=== PATIENT | male | born 1975 | race African-American/Black ===

== ENCOUNTER 2018-11-02 19:37 | Observation (INO) | payer MEDICARE, MEDICAID ==
[2018-11-02] MEDS ORDERED: NORMAL SALINE 1000 ML 1,000 ML IV ONE ×2 (19:51→21:06)
--- NOTE | 2018-11-02 19:53 | ER Document Report ---
ED General - General Stated Complaint: POSSIBLE STROKE Time Seen by Provider: 11/02/18 19:48 - HPI Patient complains to provider of: right weakness Notes: LKWT 35 mins prior to arrival has speech difficulty and right sided weakness that are new he has had cva's previously but denies right sided weakness at baseline he is on eliquis and compliant w/ last dose today per his report Past Medical History - Social History Smoking Status: Unknown if Ever Smoked Family History: Reviewed & Not Pertinent Review of Systems - Review of Systems Constitutional: No symptoms reported EENT: No symptoms reported Cardiovascular: Chest pain Respiratory: No symptoms reported Gastrointestinal: No symptoms reported Genitourinary: No symptoms reported Male Genitourinary: No symptoms reported Musculoskeletal: No symptoms reported Skin: No symptoms reported Hematologic/Lymphatic: No symptoms reported Neurological/Psychological: Weakness, Speech impairment, Numbness Physical Exam - Vital signs Vitals: Pulse Resp BP Pulse Ox 68 16 106/78 97 11/02/18 20:05 11/02/18 20:05 11/02/18 20:05 11/02/18 20:05 Interpretation: Normal - General General appearance: Appears well, Alert - HEENT Head: Normocephalic, Atraumatic Eyes: Normal Pupils: PERRL - Respiratory Respiratory status: No respiratory distress Chest status: Nontender Breath sounds: Normal Chest palpation: Normal - Cardiovascular Rhythm: Regular Heart sounds: Normal auscultation Murmur: No - Abdominal Inspection: Normal Distension: No distension Bowel sounds: Normal Tenderness: Nontender Organomegaly: No organomegaly - Back Back: Normal, Nontender - Extremities General upper extremity: Normal inspection, Nontender, Normal color, Normal ROM, Normal temperature General lower extremity: Normal inspection, Nontender, Normal color, Normal ROM, Normal temperature, Normal weight bearing. No: Justus's sign - Neurological Neuro grossly intact: Yes Cognition: Normal Orientation: AAOx4 [place] Coma Scale Eye Opening: Spontaneous [place] Coma Scale Verbal: Oriented [place] Coma Scale Motor: Obeys Commands [place] Coma Scale Total: 15 Speech: Expressive aphasia Cranial nerves: Normal Cerebellar coordination: Normal Motor strength normal: LUE, LLE. No: RUE, RLE - Right side is much weaker than left Additional motor exam normals: No: Equal prescription eyeglass maker Sensory: Altered light touch - on right - Psychological Associated symptoms: Normal affect, Normal mood - Skin Skin Temperature: Warm Skin Moisture: Dry Skin Color: Normal Course - Re-evaluation Re-evalutation: 11/02/18 21:32 not considered for tpa due to eliquis unclear if this is pyschosomatic or true weakness admit for cva eval CT w/o contrast and CTA head/neck negative for acute abnormality discussed w/ Dr Hernandez for admission - Vital Signs Vital signs: Temp Pulse Resp BP Pulse Ox 68 20 96/69 L 99 11/02/18 20:05 11/02/18 21:11 11/02/18 21:11 11/02/18 21:11 - Laboratory Result Diagrams: 11/02/18 19:48 11/02/18 19:48 Laboratory results interpreted by me: 11/02/18 11/02/18 19:48 19:48 MCH 26.7 L RDW 15.4 H Seg Neutrophils % 38.8 L Monocytes % 13.4 H Creatinine 1.86 H Est GFR ( Amer) 48 L Est GFR (Non-Af Amer) 39 L Calcium 10.7 H - EKG Interpretation by Pr EKG shows normal: Sinus rhythm Rate: Normal - 65 Additional EKG results interpreted by me: 11/02/18 21:32 nonspecific intraventricular conduction ddelay, poor R progression, nonspecific ST depression Discharge - Discharge Clinical Impression: Weakness Alcohol intoxication Qualifiers: Complication of substance-induced condition: with unspecified complication Qualified Code(s): F10.929 - Alcohol use, unspecified with intoxication, unspecified Condition: Stable Disposition: ADMITTED INPATIENT Admitting Provider: David (Hospitalist) Unit Admitted: [facility]
--- NOTE | 2018-11-02 20:01 | RADIOLOGY REPORT (SQ) ---
EXAM DESCRIPTION: CT HEAD WITHOUT COMPLETED DATE/TIME: 11/02/2018 7:43 pm REASON FOR STUDY: stroke alert COMPARISON: None. TECHNIQUE: Axial images acquired through the brain without intravenous contrast. Images reviewed wi th bone, brain and subdural windows. Additional sagittal and coronal reconstructions were generated. Images stored on PACS. All CT scanners at this facility use dose modulation, iterative reconstruction, and/or weight based d osing when appropriate to reduce radiation dose to as low as reasonably achievable (ALARA). [facility]: Dose Right [facility]: CareDose [facility]: Dose Right [facility]: Teradose 4D [facility]: InStaff RADIATION DOSE: mGy. LIMITATIONS: None. FINDINGS: VENTRICLES: Normal size and contour. CEREBRUM: Decreased attenuation within the left middle frontal lobe subcortical/lateral periventricul ar white matter. No sulcal effacement. No hemorrhage. No midline shift. No evidence for acute inf arction. Normal pop/white matter differentiation. CEREBELLUM: No masses. No hemorrhage. No alteration of density. No evidence for acute infarction. EXTRAAXIAL SPACES: No fluid collections. No masses. ORBITS AND GLOBE: No intra- or extraconal masses. Normal contour of globe without masses. CALVARIUM: No fracture. PARANASAL SINUSES: Mild mucosal thickening within the maxillary and ethmoid sinuses. SOFT TISSUES: 5 mm right postauricular metallic soft tissue foreign body. OTHER: No other significant finding. IMPRESSION: DECREASED ATTENUATION WITHIN THE LEFT MIDDLE FRONTAL LOBE SUBCORTICAL/ LATERAL PERIVENTR ICULAR WHITE MATTER, POSSIBLY REPRESENTING AN AGE INDETERMINATE INFARCT. NO INTRACRANIAL HEMORRHAGE , MIDLINE SHIFT OR MASS EFFECT. COMMENT: Quality ID # 436: Final reports with documentation of one or more dose reduction techniques (e.g., Automated exposure control, adjustment of the mA and/or kV according to patient size, use of iterative reconstruction technique) TECHNICAL DOCUMENTATION: JOB ID: [id number] [employer]- All Rights Reserved Reading location - IP/workstation name: [email or web address]
[2018-11-02 20:06] LABS: ABSOLUTE EOSINOPHILS # (AUTO) 0.2 10^3/uL (0.0-0.6); ABSOLUTE LYMPHOCYTES (AUTO) 2.5 10^3/uL (0.5-4.7); ABSOLUTE MONOCYTES (AUTO) 0.8 10^3/uL (0.1-1.4); ABSOLUTE NEUT (AUTO) 2.2 10^3/uL (1.7-8.2); BASOPHILS % (AUTO) 0.8 % (0-2); HEMATOCRIT 42.3 % (37.9-51.0); HEMOGLOBIN 13.9 g/dL (13.5-17.0); MEAN CORPUSCULAR HEMOGLOBIN 26.7 pg (27.0-33.4); MEAN CORPUSCULAR VOLUME 81 fl (80-97); MONOCYTES % (AUTO) 13.4 % (3-13); PLATELET COUNT 274 10^3/uL (150-450); RED BLOOD COUNT 5.22 10^6/uL (4.35-5.55); RED CELL DISTRIBUTION WIDTH 15.4 % (11.5-14.0); SEGMENTED NEUTROPHILS % (AUTO) 38.8 % (42-78); TOTAL CELLS COUNTED % (AUTO) 100 %; WHITE BLOOD COUNT 5.6 10^3/uL (4.0-10.5)
[2018-11-02 20:11] LABS: INTERNATIONAL RATION (INR) 1.12; PROTHROMBIN TIME 14.5 SEC (11.4-15.4)
[2018-11-02 20:12] LABS: PARTIAL THROMBOPLASTIN TIME 29.1 SEC (23.5-35.8)
[2018-11-02 20:31] LABS: ALBUMIN 4.4 g/dL (3.5-5.0); ALCOHOL 180 mg/dL (NONE DETECTED); ALKALINE PHOSPHATASE 73 U/L (38-126); ANION GAP 14 (5-19); ASPARTATE AMINO TRANSFERASE 30 U/L (17-59); BILIRUBIN,DIRECT 0.3 mg/dL (0.0-0.4); BILIRUBIN,TOTAL 0.6 mg/dL (0.2-1.3); BLOOD UREA NITROGEN 13 mg/dL (7-20); CALCIUM 10.7 mg/dL (8.4-10.2); CARBON DIOXIDE 26 mmol/L (22-30); CHLORIDE 103 mmol/L (98-107); CREATINE KINASE 113 U/L (55-170); GLUCOSE 94 mg/dL (75-110); POTASSIUM 4.2 mmol/L (3.6-5.0); TOTAL PROTEIN 7.7 g/dL (6.3-8.2)
--- NOTE | 2018-11-02 20:33 | RADIOLOGY REPORT (SQ) ---
EXAM DESCRIPTION: XR CHEST 1 VIEW COMPLETED DATE/TME: 11/02/2018 19:39 CLINICAL HISTORY: 43 years Male stroke alert COMPARISON: 10/05/2018 FINDINGS: Cardiac size appears similar to the previous. There is a pacemaker in place. Poor degree of inspiration with some atelectasis the lung bases. No consolidation or pleural fluid. IMPRESSION: No acute abnormality is identified.
[2018-11-02 20:42] LABS: CREATINE KINASE MB 0.31 ng/mL (<4.55)
[2018-11-02 20:50] LABS: TROPONIN I < 0.012 ng/mL
--- NOTE | 2018-11-02 21:20 | RADIOLOGY REPORT (SQ) ---
EXAM DESCRIPTION: CT NECK ANGIOGRAPHY WITHOUT THEN WITH IV CONTRAST, CT HEAD ANGIOGRAPHY WITHOUT THEN WITH IV CONTRAST COMPLETED DATE/TME: 11/02/2018 00:00 CLINICAL HISTORY: 43 years, Male, acute cva COMPARISON: None. TECHNIQUE: 368 Images stored on PACS. All CT scanners at this facility use dose modulation, iterative reconstruction, and/or weight based dosing when appropriate to reduce radiation dose to as low as reasonably achievable (ALARA). Axial images with coronal and sagittal MIPS [facility]: Dose Right [facility]: CareDose [facility]: Dose Right [facility]: Teradose 4D [facility]: [employer] LIMITATIONS: None. FINDINGS: CTA neck: The mediastinal vasculature of the thorax enhances normally. Classic takeoff of the great vessels from the arch of the aorta. The origins and remaining cervical portions of the vertebral arteries are patent bilaterally. The right vertebral artery is dominant. The bilateral common and cervical portions of the bilateral internal carotid arteries are widely patent bilaterally. No measurable areas of stenosis in the neck. CTA brain: The vertebral basilar system is unremarkable. Negative for basilar tip aneurysm. The petrous and remaining intracranial portions of the internal carotid arteries are widely patent bilaterally. Metallic clips with artifact projects in the posterior superficial soft tissues. The [place] of [place] is intact and unremarkable. Negative for aneurysm or arteriovenous malformation. No measurable areas of stenosis, vascular encasement, or displacement IMPRESSION: No CTA evidence for stenosis in the head or neck. TECHNICAL DOCUMENTATION: Quality ID # 436: Final reports with documentation of one or more dose reduction techniques (e.g., Automated exposure control, adjustment of the mA and/or kV according to patient size, use of iterative reconstruction technique) copyright 2011 [employer]- All Rights Reserved
--- NOTE | 2018-11-02 21:20 | RADIOLOGY REPORT (SQ) ---
EXAM DESCRIPTION: CT NECK ANGIOGRAPHY WITHOUT THEN WITH IV CONTRAST, CT HEAD ANGIOGRAPHY WITHOUT THEN WITH IV CONTRAST COMPLETED DATE/TME: 11/02/2018 00:00 CLINICAL HISTORY: 43 years, Male, acute cva COMPARISON: None. TECHNIQUE: 368 Images stored on PACS. All CT scanners at this facility use dose modulation, iterative reconstruction, and/or weight based dosing when appropriate to reduce radiation dose to as low as reasonably achievable (ALARA). Axial images with coronal and sagittal MIPS [facility]: Dose Right [facility]: CareDose [facility]: Dose Right [facility]: Teradose 4D [facility]: [employer] LIMITATIONS: None. FINDINGS: CTA neck: The mediastinal vasculature of the thorax enhances normally. Classic takeoff of the great vessels from the arch of the aorta. The origins and remaining cervical portions of the vertebral arteries are patent bilaterally. The right vertebral artery is dominant. The bilateral common and cervical portions of the bilateral internal carotid arteries are widely patent bilaterally. No measurable areas of stenosis in the neck. CTA brain: The vertebral basilar system is unremarkable. Negative for basilar tip aneurysm. The petrous and remaining intracranial portions of the internal carotid arteries are widely patent bilaterally. Metallic clips with artifact projects in the posterior superficial soft tissues. The [place] of [place] is intact and unremarkable. Negative for aneurysm or arteriovenous malformation. No measurable areas of stenosis, vascular encasement, or displacement IMPRESSION: No CTA evidence for stenosis in the head or neck. TECHNICAL DOCUMENTATION: Quality ID # 436: Final reports with documentation of one or more dose reduction techniques (e.g., Automated exposure control, adjustment of the mA and/or kV according to patient size, use of iterative reconstruction technique) copyright 2011 [employer]- All Rights Reserved
[2018-11-02 21:23] LABS: APPEARANCE,URINE CLEAR; BILIRUBIN,URINE NEGATIVE (NEGATIVE); COLOR,URINE STRAW; GLUCOSE, URINE NEGATIVE (NEGATIVE); KETONES,URINE NEGATIVE (NEGATIVE); LEUKOCYTE ESTERASE,URINE NEGATIVE (NEGATIVE); NITRITE,URINE NEGATIVE (NEGATIVE); PROTEIN,URINE NEGATIVE (NEGATIVE); URINE SPECIFIC GRAVITY 1.006; UROBILINOGEN,URINE NEGATIVE mg/dL (<2.0)
[2018-11-02 21:36] LABS: URINE AMPHETAMINES SCREEN NEGATIVE; URINE BARBITURATES SCREEN NEGATIVE; URINE BENZODIAZEPINES SCREEN NEGATIVE; URINE COCAINE SCREEN NEGATIVE; URINE MARIJUANA (THC) SCREEN NEGATIVE; URINE METHADONE SCREEN NEGATIVE; URINE PHENCYCLIDINE SCREEN NEGATIVE
[2018-11-02] MEDS ORDERED: MAGNESIUM HYDROXIDE SUSP 30 ML UDCUP PO PRN (21:44)
[2018-11-02] MEDS ORDERED: DEXTROSE 40% GEL 15 GM TUBE PO PRN ×2 (21:44)
[2018-11-02] MEDS ORDERED: IPRATROPIUM/ALBUTEROL 0.5-2.5 MG/3 ML AMPUL NEB PRN (21:44)
[2018-11-02] MEDS ORDERED: DEXTROSE 50%-WATER 25 GM/50 ML DISP.SYRIN IV PRN ×2 (21:44)
[2018-11-02] MEDS ORDERED: MAG HYDROX/AL HYDROX/SIMETH SUSP 30 ML UDCUP PO PRN (21:44)
[2018-11-02] MEDS ORDERED: GLUCAGON,HUMAN RECOMB 1 MG INJ IM PRN (21:44)
[2018-11-02] MEDS: HEPARIN SOD (PORCINE) 5,000 UNIT/ML 1 ML VIAL SUBCUT SCH (22:25)
[2018-11-03] MEDS: INSULIN LISPRO 100 UNIT/ML 3 ML VIAL SUBCUT SCH ×2 (02:56→05:38)
--- NOTE | 2018-11-03 05:27 | PDOC H&P ---
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 He presents with slurred speech and right-sided weakness of unclear onset. Patient is clearly intoxicated reminiscent of previous presentations. In the emergency room he has an extensive work-up which is negative and resolving symptoms. He is referred to the hospitalist for TIA. He denies headache, blurred vision, recent change in medications. Please see previous extensive un-merged record Alexy JasbirNadia pa Past Medical History Cardiac Medical History: Reports: Congestive Heart Failure, Coronary Artery Disease Psychiatric Medical History: Reports: Alcohol Dependency, General Anxiety Disorder Past Surgical History Past Surgical History: Reports: Coronary Stent, Pacemaker Social History Information Source: Patient Smoking Status: Former Smoker Number of Years Smokin Frequency of Alcohol Use: Heavy Hx Recreational Drug Use: No Hx Prescription Drug Abuse: No - Advance Directive Resuscitation Status: Full Code Family History Family History: CAD, Hypertension Parental Family History Reviewed: Yes Children Family History Reviewed: Yes Sibling(s) Family History Reviewed.: Yes Medication/Allergy Allergies/Adverse Reactions: No Known Allergies Allergy (Unverified 11/02/18 23:26) Review of Systems Constitutional: ABSENT: chills, fever(s), headache(s), weight gain, weight loss Eyes: ABSENT: visual disturbances Ears: ABSENT: hearing changes Cardiovascular: ABSENT: chest pain, dyspnea on exertion, edema, orthropnea, palpitations Respiratory: ABSENT: cough, hemoptysis Gastrointestinal: ABSENT: abdominal pain, constipation, diarrhea, hematemesis, hematochezia, nausea, vomiting Genitourinary: ABSENT: dysuria, hematuria Musculoskeletal: ABSENT: joint swelling Integumentary: ABSENT: rash, wounds Neurological: ABSENT: abnormal gait, abnormal speech, confusion, dizziness, focal weakness, syncope Psychiatric: ABSENT: anxiety, depression, homidical ideation, suicidal ideation Endocrine: ABSENT: cold intolerance, heat intolerance, polydipsia, polyuria Hematologic/Lymphatic: ABSENT: easy bleeding, easy bruising Physical Exam Vital Signs: Temp Pulse Resp BP Pulse Ox 98.3 F 86 20 93/55 L 99 11/03/18 03:53 11/03/18 03:53 11/03/18 03:53 11/03/18 03:53 11/03/18 03:53 Intake & Output 11/01/18 11/02/18 11/03/18 11:59 11:59 11:59 Intake Total 2000 Output Total 800 Balance 1200 Weight 92.4 kg General appearance: PRESENT: no acute distress, well-developed, well-nourished Head exam: PRESENT: atraumatic, normocephalic Eye exam: PRESENT: conjunctiva pink, EOMI, PERRLA. ABSENT: scleral icterus Ear exam: PRESENT: normal external ear exam Mouth exam: PRESENT: moist, tongue midline Neck exam: ABSENT: carotid bruit, JVD, lymphadenopathy, thyromegaly Respiratory exam: PRESENT: clear to auscultation zonia. ABSENT: rales, rhonchi, wheezes Cardiovascular exam: PRESENT: RRR. ABSENT: diastolic murmur, rubs, systolic murmur Pulses: PRESENT: normal dorsalis pedis pul Vascular exam: PRESENT: normal capillary refill GI/Abdominal exam: PRESENT: normal bowel sounds, soft. ABSENT: distended, guarding, mass, organolmegaly, rebound, tenderness Rectal exam: PRESENT: deferred Extremities exam: PRESENT: full ROM. ABSENT: calf tenderness, clubbing, pedal edema Neurological exam: PRESENT: alert, awake, oriented to person, oriented to place, oriented to time, oriented to situation, CN II-XII grossly intact. ABSENT: motor sensory deficit Psychiatric exam: PRESENT: appropriate affect, normal mood. ABSENT: homicidal ideation, suicidal ideation Skin exam: PRESENT: dry, intact, warm. ABSENT: cyanosis, rash Results Laboratory Results: 11/02/18 19:48 11/02/18 19:48 11/02/18 11/02/18 11/02/18 19:48 19:48 19:48 WBC 5.6 RBC 5.22 Hgb 13.9 Hct 42.3 MCV 81 MCH 26.7 L MCHC 33.0 RDW 15.4 H Plt Count 274 Seg Neutrophils % 38.8 L Lymphocytes % 44.0 Monocytes % 13.4 H Eosinophils % 3.0 Basophils % 0.8 Absolute Neutrophils 2.2 Absolute Lymphocytes 2.5 Absolute Monocytes 0.8 Absolute Eosinophils 0.2 Absolute Basophils 0.0 Sodium 143.1 Potassium 4.2 Chloride 103 Carbon Dioxide 26 Anion Gap 14 BUN 13 Creatinine 1.86 H Est GFR ( Amer) 48 L Est GFR (Non-Af Amer) 39 L Glucose 94 Calcium 10.7 H Magnesium Total Bilirubin 0.6 AST 30 Alkaline Phosphatase 73 Total Protein 7.7 Albumin 4.4 Lipase 113.8 TSH Urine Color Urine Appearance Urine pH Ur Specific [place] Urine Protein Urine Glucose (UA) Urine Ketones Urine Blood Urine Nitrite Ur Leukocyte Esterase Urine WBC (Auto) Urine RBC (Auto) 11/02/18 11/02/18 11/02/18 19:48 19:48 20:41 WBC RBC Hgb Hct MCV MCH MCHC RDW Plt Count Seg Neutrophils % Lymphocytes % Monocytes % Eosinophils % Basophils % Absolute Neutrophils Absolute Lymphocytes Absolute Monocytes Absolute Eosinophils Absolute Basophils Sodium Potassium Chloride Carbon Dioxide Anion Gap BUN Creatinine Est GFR ( Amer) Est GFR (Non-Af Amer) Glucose Calcium Magnesium 2.3 Total Bilirubin AST Alkaline Phosphatase Total Protein Albumin Lipase TSH 1.34 Urine Color STRAW Urine Appearance CLEAR Urine pH 5.0 Ur Specific [place] 1.006 Urine Protein NEGATIVE Urine Glucose (UA) NEGATIVE Urine Ketones NEGATIVE Urine Blood NEGATIVE Urine Nitrite NEGATIVE Ur Leukocyte Esterase NEGATIVE Urine WBC (Auto) 0 Urine RBC (Auto) 0 11/02/18 11/02/18 11/03/18 19:48 19:48 02:01 Creatine Kinase 113 CK-MB (CK-2) 0.31 Troponin I < 0.012 < 0.012 Impressions: Head CTA 11/02/18 00:00 IMPRESSION: No CTA evidence for stenosis in the head or neck. TECHNICAL DOCUMENTATION: Quality ID # 436: Final reports with documentation of one or more dose reduction techniques (e.g., Automated exposure control, adjustment of the mA and/or kV according to patient size, use of iterative reconstruction technique) copyright 2011 [employer]- All Rights Reserved Neck CTA 11/02/18 00:00 IMPRESSION: No CTA evidence for stenosis in the head or neck. TECHNICAL DOCUMENTATION: Quality ID # [id number]: Final reports with documentation of one or more dose reduction techniques (e.g., Automated exposure control, adjustment of the mA and/or kV according to patient size, use of iterative reconstruction technique) copyright 2010 [employer]- All Rights Reserved Chest X-Ray 11/02/18 19:39 IMPRESSION: No acute abnormality is identified. Head CT 11/02/18 19:39 IMPRESSION: DECREASED ATTENUATION WITHIN THE LEFT MIDDLE FRONTAL LOBE SUBCORTICAL/ LATERAL PERIVENTRICULAR WHITE MATTER, POSSIBLY REPRESENTING AN AGE INDETERMINATE INFARCT. NO INTRACRANIAL HEMORRHAGE, MIDLINE SHIFT OR MASS EFFECT. Assessment and Plan - Diagnosis (1) Alcohol intoxication Qualifiers: Complication of substance-induced condition: with unspecified complication Qualified Code(s): F10.929 - Alcohol use, unspecified with intoxication, unspecified Is this a current diagnosis for this admission?: Yes Plan: Thiamine, folate, education (2) Weakness Is this a current diagnosis for this admission?: Yes Plan: Secondary to #1 without residual (3) Coronary artery disease Is this a current diagnosis for this admission?: Yes Plan: Extensive history of presentations with recurrent chest pain, acute intoxication with unremarkable work-up most recent stress test September 2018 at [facility]. Continue outpatient regiment - Time Time Spent with patient: 25-34 minutes - Inpatient Certification Medical Necessity: Need Close Monitoring Due to Risk of Patient Decompensation
[2018-11-03] MEDS: HEPARIN SOD (PORCINE) 5,000 UNIT/ML 1 ML VIAL SUBCUT SCH ×2 (05:38→13:38)
--- NOTE | 2018-11-03 07:35 | EKG REPORT ---
SEVERITY:- ABNORMAL ECG - SINUS RHYTHM NONSPECIFIC INTRAVENTRICULAR CONDUCTION DELAY ABNRM R PROG, CONSIDER ASMI OR LEAD PLACEMENT MINIMAL ST DEPRESSION, LATERAL LEADS : Confirmed by: Dawit Santoyo MD 03-Nov-2018 07:34:18
[2018-11-03 08:28] LABS: ABSOLUTE BASOPHILS # (AUTO) 0.1 10^3/uL (0.0-0.2); ABSOLUTE EOSINOPHILS # (AUTO) 0.2 10^3/uL (0.0-0.6); ABSOLUTE LYMPHOCYTES (AUTO) 2.2 10^3/uL (0.5-4.7); ABSOLUTE MONOCYTES (AUTO) 0.8 10^3/uL (0.1-1.4); ABSOLUTE NEUT (AUTO) 1.7 10^3/uL (1.7-8.2); EOSINOPHILS % (AUTO) 4.2 % (0-6); HEMATOCRIT 37.7 % (37.9-51.0); HEMOGLOBIN 12.5 g/dL (13.5-17.0); MEAN CORPUSCULAR HEMOGLOBIN 26.7 pg (27.0-33.4); MEAN CORPUSCULAR HGB CONC 33.3 g/dL (32.0-36.0); MEAN CORPUSCULAR VOLUME 80 fl (80-97); MONOCYTES % (AUTO) 16.5 % (3-13); PLATELET COUNT 260 10^3/uL (150-450); RED CELL DISTRIBUTION WIDTH 15.1 % (11.5-14.0); SEGMENTED NEUTROPHILS % (AUTO) 33.3 % (42-78); TOTAL CELLS COUNTED % (AUTO) 100 %
[2018-11-03 08:45] LABS: ANION GAP 8 (5-19); BLOOD UREA NITROGEN 13 mg/dL (7-20); CALCIUM 9.1 mg/dL (8.4-10.2); CARBON DIOXIDE 24 mmol/L (22-30); CHLORIDE 109 mmol/L (98-107); GLUCOSE 88 mg/dL (75-110); POTASSIUM 4.3 mmol/L (3.6-5.0)
[2018-11-03] MEDS: DOCUSATE SODIUM 100 MG CAPSULE PO SCH ×2 (09:34→17:00)
[2018-11-03] MEDS ORDERED: ACETAMINOPHEN 325 MG TABLET PO ONE (12:00)
[2018-11-03] MEDS ORDERED: TRAMADOL HCL 50 MG TABLET PO PRN ×2 (15:31→20:38)
[2018-11-03] MEDS ORDERED: NITROGLYCERIN 0.4 MG/TAB 25 TAB/BOTTLE SL PRN (20:38)
[2018-11-03] MEDS ORDERED: OXYCODONE HCL IR 5 MG TABLET PO PRN ×2 (20:48→21:15)
[2018-11-03] MEDS: RANOLAZINE 500 MG TAB.SR.12H PO SCH (21:33)
[2018-11-03] MEDS: ATORVASTATIN CALCIUM 80 MG TABLET PO SCH (21:33)
[2018-11-03] MEDS: APIXABAN 5 MG TABLET PO SCH (21:33)
[2018-11-04] MEDS: TRAMADOL HCL 50 MG TABLET PO PRN ×2 (01:12→13:45)
[2018-11-04] MEDS: GUAIFENESIN SYRP 200 MG/10 ML UDC PO PRN ×4 (01:53→22:31)
[2018-11-04] MEDS: RANOLAZINE 500 MG TAB.SR.12H PO SCH ×2 (09:22→22:03)
[2018-11-04] MEDS: APIXABAN 5 MG TABLET PO SCH ×2 (09:22→17:04)
[2018-11-04] MEDS: DOCUSATE SODIUM 100 MG CAPSULE PO SCH ×2 (09:22→17:04)
[2018-11-04] MEDS: ASPIRIN 81 MG TABLET, ENT COATED PO SCH (09:22)
--- NOTE | 2018-11-04 13:31 | PDOC PROGRESS REPORT ---
Subjective Progress Note for:: 11/03/18 Subjective:: Patient resting comfortably in bed. He denies chest pain but has a subtle slur to his speech. It does look like the right side of his mouth droops slightly. Reason For Visit: ENCEPHALOPATHY INTOXICATION Physical Exam Vital Signs: Temp Pulse Resp BP Pulse Ox 98.2 F 76 17 120/82 100 11/03/18 11:30 11/03/18 14:00 11/03/18 11:30 11/03/18 11:30 11/03/18 11:30 Intake & Output 11/02/18 11/03/18 11/04/18 06:59 06:59 06:59 Intake Total 2450 50 Output Total 1150 Balance 1300 50 Weight 92.7 kg General appearance: PRESENT: no acute distress, cooperative, well-developed Head exam: PRESENT: atraumatic, normocephalic Eye exam: PRESENT: conjunctiva pink. ABSENT: scleral icterus Mouth exam: PRESENT: moist, tongue midline Respiratory exam: PRESENT: clear to auscultation zonia, symmetrical, unlabored. ABSENT: rales, rhonchi, tachypnea, wheezes Cardiovascular exam: PRESENT: RRR, +S1, +S2, systolic murmur - 2/6 GI/Abdominal exam: PRESENT: normal bowel sounds, soft. ABSENT: distended, tenderness Rectal exam: PRESENT: deferred Gentrourinary exam: ABSENT: indwelling catheter Extremities exam: ABSENT: joint swelling, pedal edema Musculoskeletal exam: PRESENT: full ROM, normal inspection Neurological exam: PRESENT: alert, awake, oriented to person, oriented to place, oriented to time, oriented to situation, motor sensory deficit - As noted above the right side of his mouth droops slightly. Dysarthria is noted in his speech. No other focal motor or sensory deficits detected. Psychiatric exam: PRESENT: appropriate affect. ABSENT: agitated, anxious Focused psych exam: ABSENT: delusional, restlessness Results Laboratory Results: 11/03/18 07:33 11/03/18 07:33 11/02/18 11/02/18 11/02/18 19:48 19:48 19:48 WBC 5.6 RBC 5.22 Hgb 13.9 Hct 42.3 MCV 81 MCH 26.7 L MCHC 33.0 RDW 15.4 H Plt Count 274 Seg Neutrophils % 38.8 L Lymphocytes % 44.0 Monocytes % 13.4 H Eosinophils % 3.0 Basophils % 0.8 Absolute Neutrophils 2.2 Absolute Lymphocytes 2.5 Absolute Monocytes 0.8 Absolute Eosinophils 0.2 Absolute Basophils 0.0 Sodium 143.1 Potassium 4.2 Chloride 103 Carbon Dioxide 26 Anion Gap 14 BUN 13 Creatinine 1.86 H Est GFR ( Amer) 48 L Est GFR (Non-Af Amer) 39 L Glucose 94 Calcium 10.7 H Magnesium Total Bilirubin 0.6 AST 30 Alkaline Phosphatase 73 Total Protein 7.7 Albumin 4.4 Lipase 113.8 TSH Urine Color Urine Appearance Urine pH Ur Specific [place] Urine Protein Urine Glucose (UA) Urine Ketones Urine Blood Urine Nitrite Ur Leukocyte Esterase Urine WBC (Auto) Urine RBC (Auto) 11/02/18 11/02/18 11/02/18 19:48 19:48 20:41 WBC RBC Hgb Hct MCV MCH MCHC RDW Plt Count Seg Neutrophils % Lymphocytes % Monocytes % Eosinophils % Basophils % Absolute Neutrophils Absolute Lymphocytes Absolute Monocytes Absolute Eosinophils Absolute Basophils Sodium Potassium Chloride Carbon Dioxide Anion Gap BUN Creatinine Est GFR ( Amer) Est GFR (Non-Af Amer) Glucose Calcium Magnesium 2.3 Total Bilirubin AST Alkaline Phosphatase Total Protein Albumin Lipase TSH 1.34 Urine Color STRAW Urine Appearance CLEAR Urine pH 5.0 Ur Specific [place] 1.006 Urine Protein NEGATIVE Urine Glucose (UA) NEGATIVE Urine Ketones NEGATIVE Urine Blood NEGATIVE Urine Nitrite NEGATIVE Ur Leukocyte Esterase NEGATIVE Urine WBC (Auto) 0 Urine RBC (Auto) 0 11/03/18 11/03/18 07:33 07:33 WBC 5.0 RBC 4.70 Hgb 12.5 L Hct 37.7 L MCV 80 MCH 26.7 L MCHC 33.3 RDW 15.1 H Plt Count 260 Seg Neutrophils % 33.3 L Lymphocytes % 45.0 Monocytes % 16.5 H Eosinophils % 4.2 Basophils % 1.0 Absolute Neutrophils 1.7 Absolute Lymphocytes 2.2 Absolute Monocytes 0.8 Absolute Eosinophils 0.2 Absolute Basophils 0.1 Sodium 141.2 Potassium 4.3 Chloride 109 H Carbon Dioxide 24 Anion Gap 8 BUN 13 Creatinine 1.30 H Est GFR ( Amer) > 60 Est GFR (Non-Af Amer) > 60 Glucose 88 Calcium 9.1 Magnesium Total Bilirubin AST Alkaline Phosphatase Total Protein Albumin Lipase TSH Urine Color Urine Appearance Urine pH Ur Specific [place] Urine Protein Urine Glucose (UA) Urine Ketones Urine Blood Urine Nitrite Ur Leukocyte Esterase Urine WBC (Auto) Urine RBC (Auto) 11/02/18 11/02/18 11/03/18 19:48 19:48 02:01 Creatine Kinase 113 CK-MB (CK-2) 0.31 Troponin I < 0.012 < 0.012 11/03/18 07:33 Creatine Kinase CK-MB (CK-2) Troponin I < 0.012 Impressions: Head CTA 11/02/18 00:00 IMPRESSION: No CTA evidence for stenosis in the head or neck. TECHNICAL DOCUMENTATION: Quality ID # 436: Final reports with documentation of one or more dose reduction techniques (e.g., Automated exposure control, adjustment of the mA and/or kV according to patient size, use of iterative reconstruction technique) copyright 2010 [employer]- All Rights Reserved Neck CTA 11/02/18 00:00 IMPRESSION: No CTA evidence for stenosis in the head or neck. TECHNICAL DOCUMENTATION: Quality ID # 436: Final reports with documentation of one or more dose reduction techniques (e.g., Automated exposure control, adjustment of the mA and/or kV according to patient size, use of iterative reconstruction technique) copyright 2010 [employer]- All Rights Reserved Chest X-Ray 11/02/18 19:39 IMPRESSION: No acute abnormality is identified. Head CT 11/02/18 19:39 IMPRESSION: DECREASED ATTENUATION WITHIN THE LEFT MIDDLE FRONTAL LOBE SUBCORTICAL/ LATERAL PERIVENTRICULAR WHITE MATTER, POSSIBLY REPRESENTING AN AGE INDETERMINATE INFARCT. NO INTRACRANIAL HEMORRHAGE, MIDLINE SHIFT OR MASS EFFECT. Assessment and Plan - Diagnosis (1) Alcohol intoxication Qualifiers: Complication of substance-induced condition: with unspecified complication Qualified Code(s): F10.929 - Alcohol use, unspecified with intoxication, unspecified Is this a current diagnosis for this admission?: Yes Plan: 11/03/2018-the patient's serum alcohol level was 180 on admission. He will be on seizure precaution with benzodiazepines available for possibility of withdrawal. No evidence of intoxication today. (2) Cardiomyopathy Qualifiers: Cardiomyopathy type: alcoholic Qualified Code(s): I42.6 - Alcoholic cardiomyopathy Is this a current diagnosis for this admission?: Yes Plan: Per the patient there was an echocardiogram at [facility] with an ejection fraction of 20%. 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 With his low ejection fraction he does have a defibrillator in place and is on anticoagulation. I do not believe coronary artery disease has ever been proven. (3) Weakness Is this a current diagnosis for this admission?: Yes Plan: Patient reports weakness has improved. Still with slight dysarthria. CT scan did show an area of hypoattenuation on the left but it was age indeterminate. Generalized weakness certainly could be attributed to acute alcohol intoxication however this should not account for ongoing dysarthria. (4) Dysarthria Is this a current diagnosis for this admission?: Yes Plan: The patient does have some residual dysarthria with noticeable droop in the right corner of his mouth. The area of hypoattenuation is age-indeterminate but I believe that the patient did have a small infarct. The majority of symptoms have resolved with the exception of the dysarthria. (5) Acute ischemic stroke Is this a current diagnosis for this admission?: Yes Plan: As noted above the patient's initial presentation of weakness and dysarthria certainly could be attributed to alcohol intoxication. Most of the symptoms have resolved. There is still a definite droop to the right side of his mouth with associated dysarthria. Clinically the patient has had a stroke. He is on aspirin and Eliquis. - Time Time Spent with patient: 15-24 minutes Medications reviewed and adjusted accordingly: Yes Anticipated discharge: Home
[2018-11-04] MEDS ORDERED: OXYCODONE HCL SR 10 MG TABLET PO PRN (16:46)
[2018-11-04] MEDS ORDERED: OXYCODONE HCL IR 5 MG TABLET PO PRN (16:47)
[2018-11-04] MEDS ORDERED: FUROSEMIDE INJ/PF 40 MG/4 ML SDV ONE (17:01)
[2018-11-04 17:49] LABS: ANION GAP 8 (5-19); BLOOD UREA NITROGEN 11 mg/dL (7-20); CARBON DIOXIDE 25 mmol/L (22-30); CHLORIDE 106 mmol/L (98-107); GLUCOSE 102 mg/dL (75-110); POTASSIUM 4.1 mmol/L (3.6-5.0)
[2018-11-04] MEDS ORDERED: (PENDING PHARMACY ID) (Potassium Chloride [Klor-Con M20] 40 MEQ) PO SCH (18:00)
[2018-11-04] MEDS: POTASSIUM CHLORIDE 10 MEQ CAPSULE.ER PO SCH (18:09)
[2018-11-04] MEDS: ACETAMINOPHEN 325 MG TABLET PO PRN ×2 (18:15→22:31)
[2018-11-04] MEDS ORDERED: FUROSEMIDE INJ/PF 20 MG/2 ML SDV IV ONE (18:30)
--- NOTE | 2018-11-04 18:34 | RADIOLOGY REPORT (SQ) ---
EXAM DESCRIPTION: CHEST SINGLE VIEW COMPLETED DATE/TIME: 11/04/2018 5:57 pm REASON FOR STUDY: chf COMPARISON: 11/02/2018 EXAM PARAMETERS: NUMBER OF VIEWS: One view. TECHNIQUE: Single frontal radiographic view of the chest acquired. RADIATION DOSE: NA LIMITATIONS: None. FINDINGS: LUNGS AND PLEURA: No opacities, masses or pneumothorax. No pleural effusion. MEDIASTINUM AND HILAR STRUCTURES: No masses. Contour normal. HEART AND VASCULAR STRUCTURES: Cardiomegaly. No pulmonary edema. BONES: No acute findings. HARDWARE: Pacemaker/defibrillator. OTHER: No other significant finding. IMPRESSION: Cardiomegaly without pulmonary edema. TECHNICAL DOCUMENTATION: JOB ID: [id number] [employer]- All Rights Reserved Reading location - IP/workstation name: [email or web address]
[2018-11-04] MEDS: ALPRAZOLAM 0.5 MG TABLET PO SCH (22:03)
[2018-11-04] MEDS: ATORVASTATIN CALCIUM 80 MG TABLET PO SCH (22:04)
[2018-11-04] MEDS: OXYCODONE HCL IR 5 MG TABLET PO PRN (22:31)
[2018-11-05] MEDS: POTASSIUM CHLORIDE 10 MEQ CAPSULE.ER PO SCH (05:42)
[2018-11-05] MEDS: ALPRAZOLAM 0.5 MG TABLET PO SCH (06:05)
[2018-11-05] MEDS: APIXABAN 5 MG TABLET PO SCH (09:19)
[2018-11-05] MEDS: OXYCODONE HCL IR 5 MG TABLET PO PRN (09:19)
[2018-11-05] MEDS: DOCUSATE SODIUM 100 MG CAPSULE PO SCH (09:21)
[2018-11-05] MEDS: ASPIRIN 81 MG TABLET, ENT COATED PO SCH (09:21)
[2018-11-05] MEDS: ACETAMINOPHEN 325 MG TABLET PO PRN (09:22)
[2018-11-05] MEDS: RANOLAZINE 500 MG TAB.SR.12H PO SCH (09:22)
[2018-11-05] MEDS ORDERED: LISINOPRIL 10 MG TABLET PO SCH (10:00)
[2018-11-05] MEDS ORDERED: FUROSEMIDE 40 MG TABLET PO SCH (10:00)
[2018-11-05] MEDS ORDERED: (PENDING PHARMACY ID) (Lisinopril [Lisinopril] 20 MG) PO SCH (10:00)
[2018-11-05] MEDS ORDERED: BISOPROLOL FUMARATE 10 MG PO SCH (10:00)
[2018-11-05] MEDS ORDERED: ATENOLOL 50 MG TABLET PO SCH (10:00)
[2018-11-05 11:34] VITALS: BP 92/56
--- NOTE | 2018-11-05 12:26 | PDOC DISCHARGE SUMMARY ---
General - Admit/Disc Date/PCP Admission Date/Primary Care Provider: 11/02/18 22:08 TIKA RICE, Discharge Date: 11/05/18 - Discharge Diagnosis (1) Alcohol intoxication Is this a current diagnosis for this admission?: Yes Summary: Patient was admitted with a serum alcohol level of 180. Weakness and slurred speech certainly would be consistent with intoxication. However over the ensuing days all systemic weakness subsided but he did have persistent right side of his mouth droop with associated dysarthria. During his stay he did not exhibit any withdrawal. (2) Cardiomyopathy Is this a current diagnosis for this admission?: Yes Summary: The patient has a history of cardiac work-up earlier this year at [facility]. He reports cardiac function is diminished. He is ejection fraction is reported to be 20%. This is consistent with his implanted defibrillator. His cardiac medications were resumed yesterday and he feels much better today. He does have follow-up with his bone tender later this month. (3) Weakness Is this a current diagnosis for this admission?: Yes Summary: While systemic weakness has resolved. It is likely that the weakness was a combination of a small stroke and alcohol intoxication. It is almost impossible to delineate. The admission history and physical does not indicate localized we akness right or left. (4) Dysarthria Is this a current diagnosis for this admission?: Yes Summary: It was clear over the last several days that the patient did have dysarthria that persisted. It was not accident related and you could certainly discern drooping of the right side of his mouth. Today it appears to have resolved co mpletely. Discharge planning was working on outpatient speech therapy. (5) Acute ischemic stroke Is this a current diagnosis for this admission?: Yes Summary: Based on the clinical presentation as well as recovery witnessed through his hospitalization I believe that the patient did have a small ischemic stroke. The area identified on the CT scan was listed as age-indeterminate. The patient cannot have an MRI because of his implanted defibrillator but clinically this certainly supports a diagnosis of acute ischemic stroke. The patient will discharge on his aspirin therapy however because of his hemoptysis I have elected to hold the Eliquis for the time being. (6) Acute on chronic systolic heart failure Is this a current diagnosis for this admission?: Yes Summary: The patient developed an acute exacerbation of his chronic systolic heart failure. With resumption of, and additional diuretic, the cardiac medication regimen has stabilized the patient. His breathing is back to normal per his reporting. We will discharge him on his usual home medication regimen. (7) Hemoptysis Is this a current diagnosis for this admission?: Yes Summary: As noted above the patient had hemoptysis. This coincided with the exacerbation of his heart failure and certainly could be related. It has dissipated but I will also hold his Eliquis for the time being. I will defer to his primary care provider and/or bone tender regarding resumption of Eliquis. - Additional Information Resuscitation Status: Full Code Discharge Diet: Cardiac Discharge Activity: Activity As Tolerated Home Medications: Alprazolam [Xanax] 2 mg PO TID 11/03/18 Aspirin [Ecotrin 81 mg EC Tablet] 81 mg PO DAILY 11/03/18 Atorvastatin Calcium [Lipitor 80 mg Tablet] 80 mg PO QHS 11/03/18 Bisoprolol Fumarate [Zebeta 5 mg Tablet] 10 mg PO DAILY 11/03/18 Furosemide [Lasix 40 mg Tablet] 40 mg PO BID 11/03/18 Lisinopril 20 mg PO DAILY 11/03/18 Nitroglycerin [Nitrostat 0.4 mg (1/150 Gr) Tabs 25/Bottle] 1 tab SL Q5MP PRN 11/03/18 Oxycodone HCl 15 mg PO Q6HP PRN 11/03/18 Potassium Chloride [Klor-Con M20] 40 meq PO BID 11/03/18 Ranolazine [Ranexa 500 mg Tab.sr] 500 mg PO Q12 11/03/18 Tacrolimus [Protopic] 1 applic TP ASDIR PRN 11/03/18 Testosterone Cypionate [Depo-Testosterone] 2 ml IM Q7D 11/03/18 Tramadol HCl [Ultram] 100 mg PO TIDP PRN 11/03/18 Docusate Sodium [Colace 100 mg Capsule] 100 mg PO BID capsule 11/05/18 History of Present Illness Patient complains of: Right-sided weakness History of Present Illness: SUREKHA RODRIGUEZ is a 43 year old male with a history of alcohol dependence and stroke. He was on Eliquis. He had no residual deficit. He has a cardiomyopathy as well. He presented with weakness however intoxication clouded the picture. CT scan showed left-sided infarct of indeterminate age. Due to concern for stroke and with his marginal cardiac status the patient was referred to the hospitalist for admission. Hospital Course Hospital Course: Details as above Physical Exam Vital Signs: Temp Pulse Resp BP Pulse Ox 98.6 F 86 18 92/56 L 94 11/05/18 10:51 11/05/18 10:51 11/05/18 10:51 11/05/18 10:51 11/05/18 10:51 Intake & Output 11/04/18 11/05/18 11/06/18 06:59 06:59 06:59 Intake Total 1272 462 Output Total 0 Balance 1272 462 Weight 91.9 kg 92.9 kg General appearance: PRESENT: no acute distress, cooperative, well-developed Head exam: PRESENT: atraumatic, normocephalic Mouth exam: PRESENT: moist, tongue midline, other - No discernible right sided droop Respiratory exam: PRESENT: clear to auscultation zonia, symmetrical, unlabored. ABSENT: accessory muscle use, rales, rhonchi, tachypnea, wheezes Cardiovascular exam: PRESENT: RRR, +S1, +S2 GI/Abdominal exam: PRESENT: normal bowel sounds, soft. ABSENT: distended, tenderness Musculoskeletal exam: PRESENT: ambulatory, normal inspection Neurological exam: PRESENT: alert, awake, oriented to person, oriented to place, oriented to time, oriented to situation, CN II-XII grossly intact. ABSENT: motor sensory deficit - No dysarthria detected on today's exam Psychiatric exam: PRESENT: appropriate affect, normal mood. ABSENT: agitated, anxious Focused psych exam: ABSENT: delusional, restlessness Skin exam: PRESENT: dry, normal color, warm. ABSENT: rash Results Laboratory Results: 11/03/18 07:33 11/04/18 17:07 11/04/18 17:07 Sodium 139.2 Potassium 4.1 Chloride 106 Carbon Dioxide 25 Anion Gap 8 BUN 11 Creatinine 1.24 Est GFR ( Amer) > 60 Est GFR (Non-Af Amer) > 60 Glucose 102 Calcium 9.0 11/02/18 11/02/18 11/03/18 19:48 19:48 02:01 Creatine Kinase 113 CK-MB (CK-2) 0.31 Troponin I < 0.012 < 0.012 NT-Pro-B Natriuret Pep 11/03/18 11/03/18 11/04/18 07:33 13:53 17:07 Creatine Kinase CK-MB (CK-2) Troponin I < 0.012 < 0.012 NT-Pro-B Natriuret Pep 2130 H Impressions: Head CTA 11/02/18 00:00 IMPRESSION: No CTA evidence for stenosis in the head or neck. TECHNICAL DOCUMENTATION: Quality ID # 436: Final reports with documentation of one or more dose reduction techniques (e.g., Automated exposure control, adjustment of the mA and/or kV according to patient size, use of iterative reconstruction technique) copyright 2010 [employer]- All Rights Reserved Neck CTA 11/02/18 00:00 IMPRESSION: No CTA evidence for stenosis in the head or neck. TECHNICAL DOCUMENTATION: Quality ID # [id number]: Final reports with documentation of one or more dose reduction techniques (e.g., Automated exposure control, adjustment of the mA and/or kV according to patient size, use of iterative reconstruction technique) copyright 2010 [employer]- All Rights Reserved Head CT 11/02/18 19:39 IMPRESSION: DECREASED ATTENUATION WITHIN THE LEFT MIDDLE FRONTAL LOBE SUBCORTICAL/ LATERAL PERIVENTRICULAR WHITE MATTER, POSSIBLY REPRESENTING AN AGE INDETERMINATE INFARCT. NO INTRACRANIAL HEMORRHAGE, MIDLINE SHIFT OR MASS EFFECT. Chest X-Ray 11/04/18 17:00 IMPRESSION: Cardiomegaly without pulmonary edema. Qualifiers - * PATIENT BEING DISCHARGED WITH ANY OF THE FOLLOWING DIAGNOSIS: Stroke Stroke Pt being discharged on Anti-thrombolytic therapy?: Yes Stroke Pt being discharged on Anti-coagulation therapy?: No Reason(s) for not prescribing Anti-coagulation therapy:: Contraindicated - Patient was on Eliquis. It was held at discharge due to hemoptysis. I will notify primary care provider to resume if hemoptysis subsides. Stroke Pt being discharged on Statins?: Yes Acute Heart Failure - Is this a Heart Failure Patient?: Yes Documentation of LVEF assessment?: No, Document reason - Echocardiogram at [facility] earlier this year. Patient reported results. No reason to doubt accuracy. LVEF < 40%?: Yes-if yes answer questions a through e a) Discharged on ACEI?: Yes b) Discharges on ARB?: No-document contraindications - Patient continued his bone tender's prescribed regimen Reason(s) not discharged on ARB: Other - Current medication regimen per the patient's primary bone tender c) Discharged on ARNI?: No-Document Contraindications Reason(s) not discharged on ARNI: ACEI use within the prior 36 hours d) Discharged on evidence-based Beta amaris(carvedilol, sustained release metoprolol succinate, or bisoprolol)?: Yes e) For LVEF <35%, discharged on Aldosterone antagonist?: No-document contraincations Reason(s) not discharged on Aldosterone antagonist for LVEF < 35%: Other - Cardiac regimen per the patient's primary bone tender at [facility] 3. Anticoagulant therapy for permanect/persistent/paraoxysmal Afib or Aflutter: N/A Follow-up Appointment scheduled within 7 days?: No, document reason - Patient had a previously scheduled appointment within 14 days. Patient was stable and appropriate for this timeframe. Plan Discharge Plan: Patient has a follow-up with primary care and his bone tender within the next week or 2 Time Spent: Greater than 30 Minutes
--- NOTE | 2018-11-05 19:58 | PDOC PROGRESS REPORT ---
Subjective Progress Note for:: 11/04/18 Subjective:: Today the patient complains of significantly increased shortness of breath. He was also having hemoptysis and this was witnessed by the nurse. Reason For Visit: ENCEPHALOPATHY INTOXICATION Physical Exam Vital Signs: Temp Pulse Resp BP Pulse Ox 98.3 F 80 19 111/76 99 11/04/18 08:38 11/04/18 08:38 11/04/18 08:38 11/04/18 08:38 11/04/18 08:38 Intake & Output 11/03/18 11/04/18 11/05/18 06:59 06:59 06:59 Intake Total 2450 1272 Output Total 1150 0 Balance 1300 1272 Weight 92.7 kg 91.9 kg General appearance: PRESENT: cooperative, mild distress - Mild to moderate distress secondary to dyspnea., well-developed Head exam: PRESENT: atraumatic, normocephalic Respiratory exam: PRESENT: rales - Rales bilaterally, symmetrical, tachypnea, other - Breathing is somewhat labored. ABSENT: rhonchi, wheezes Cardiovascular exam: PRESENT: RRR, +S1, +S2 GI/Abdominal exam: PRESENT: normal bowel sounds, soft. ABSENT: distended, tenderness Neurological exam: PRESENT: alert, awake, oriented to person, oriented to place, oriented to time, oriented to situation, motor sensory deficit - Still with right facial droop and dysarthria but symptoms appear more mild. Psychiatric exam: PRESENT: anxious - Regarding his increased shortness of breath Results Laboratory Results: 11/03/18 07:33 11/03/18 07:33 11/02/18 11/02/18 11/03/18 19:48 19:48 02:01 Creatine Kinase 113 CK-MB (CK-2) 0.31 Troponin I < 0.012 < 0.012 11/03/18 11/03/18 07:33 13:53 Creatine Kinase CK-MB (CK-2) Troponin I < 0.012 < 0.012 Impressions: Head CTA 11/02/18 00:00 IMPRESSION: No CTA evidence for stenosis in the head or neck. TECHNICAL DOCUMENTATION: Quality ID # 436: Final reports with documentation of one or more dose reduction techniques (e.g., Automated exposure control, adjustment of the mA and/or kV according to patient size, use of iterative reconstruction technique) copyright 2011 [employer]- All Rights Reserved Neck CTA 11/02/18 00:00 IMPRESSION: No CTA evidence for stenosis in the head or neck. TECHNICAL DOCUMENTATION: Quality ID # [id number]: Final reports with documentation of one or more dose reduction techniques (e.g., Automated exposure control, adjustment of the mA and/or kV according to patient size, use of iterative reconstruction technique) copyright 2010 [employer]- All Rights Reserved Chest X-Ray 11/02/18 19:39 IMPRESSION: No acute abnormality is identified. Head CT 11/02/18 19:39 IMPRESSION: DECREASED ATTENUATION WITHIN THE LEFT MIDDLE FRONTAL LOBE SUBCORTICAL/ LATERAL PERIVENTRICULAR WHITE MATTER, POSSIBLY REPRESENTING AN AGE INDETERMINATE INFARCT. NO INTRACRANIAL HEMORRHAGE, MIDLINE SHIFT OR MASS EF FECT. Assessment and Plan - Diagnosis (1) Alcohol intoxication Qualifiers: Complication of substance-induced condition: with unspecified complication Qualified Code(s): F10.929 - Alcohol use, unspecified with intoxication, unspecified Is this a current diagnosis for this admission?: Yes Plan: 11/03/2018-the patient's serum alcohol level was 180 on admission. He will be on seizure precaution with benzodiazepines available for possibility of withdrawal. No evidence of intoxication today. 11/04/2018-no evidence of intoxication or withdrawal (2) Cardiomyopathy Qualifiers: Cardiomyopathy type: alcoholic Qualified Code(s): I42.6 - Alcoholic cardiomyopathy Is this a current diagnosis for this admission?: Yes Plan: Per the patient there was an echocardiogram at [facility] with an ejection fraction of 20%. 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 With his low ejection fraction he does have a defibrillator in place and is on anticoagulation. I do not believe coronary artery disease has ever been proven. 11/04/2018-as noted above the actual studies from [facility] are not available. The depressed ejection fraction most likely is an alcohol-related cardiomyopathy. The patient could not provide much detail. He does know that he has an implanted defibrillator. Continue current medication regimen (3) Weakness Is this a current diagnosis for this admission?: Yes Plan: Patient reports weakness has improved. Still with slight dysarthria. CT scan did show an area of hypoattenuation on the left but it was age indeterminate. Generalized weakness certainly could be attributed to acute alcohol intoxication however this should not account for ongoing dysarthria. 11/04/2018-systemic motor function is intact. Dysarthria remains. (4) Dysarthria Is this a current diagnosis for this admission?: Yes Plan: The patient does have some residual dysarthria with noticeable droop in the right corner of his mouth. The area of hypoattenuation is age-indeterminate but I believe that the patient did have a small infarct. The majority of symptoms have resolved with the exception of the dysarthria. 11/04/2018-the patient still exhibits some dysarthria however his labored breathing makes it somewhat difficult to assess. (5) Acute ischemic stroke Is this a current diagnosis for this admission?: Yes Plan: As noted above the patient's initial presentation of weakness and dysarthria certainly could be attributed to alcohol intoxication. Most of the symptoms have resolved. There is still a definite droop to the right side of his mouth with associated dysarthria. Clinically the patient has had a stroke. He is on aspirin and Eliquis. 11/04/2018-as noted above the dysarthria remains. His dysarthria and slight right mouth droop are consistent with stroke as opposed to intoxication. Continue aspirin therapy. (6) Acute on chronic systolic heart failure Is this a current diagnosis for this admission?: Yes Plan: 11/04/2018-the patient's medication regimen was reviewed. His cardiac medication regimen was resumed and this included his furosemide. I did in fact give him a dose of IV furosemide. I will check a brain atretic peptide as well. (7) Hemoptysis Is this a current diagnosis for this admission?: Yes Plan: 11/04/2018-the patient had hemoptysis witnessed by the nurse. This could be due to his congestive heart failure or irritation from the cough now that he is on Eliquis. If this continues I will discontinue the Eliquis. If necessary I will discontinue the aspirin therapy as well. Continue to monitor. - Time Time Spent with patient: 15-24 minutes Medications reviewed and adjusted accordingly: Yes Anticipated discharge: Home
== END 2018-11-05 12:53 | disposition home or self-care (01) ==
LOC: EDBD → ER 19:37 → EH 22:08 → 3S 11-03 00:15
PROVIDERS: ADMIT Internal Medicine; ATTEND Internal Medicine
DX: F10.229 Alcohol dependence with intoxication, unspecified (principal); Y90.6 Blood alcohol level of 120-199 mg/100 ml; I63.9 Cerebral infarction, unspecified; R53.1 Weakness; R29.810 Facial weakness; R47.1 Dysarthria and anarthria; R47.01 Aphasia; I50.23 Acute on chronic systolic (congestive) heart failure; R04.2 Hemoptysis; I25.5 Ischemic cardiomyopathy; I42.0 Dilated cardiomyopathy; R06.00 Dyspnea, unspecified; I25.10 Atherosclerotic heart disease of native coronary artery without angina pectoris; R07.89 Other chest pain; R40.2142 Coma scale, eyes open, spontaneous, at arrival to emergency department; R40.2362 Coma scale, best motor response, obeys commands, at arrival to emergency department; R40.2252 Coma scale, best verbal response, oriented, at arrival to emergency department; Z95.810 Presence of automatic (implantable) cardiac defibrillator; Z79.82 Long term (current) use of aspirin; Z86.73 Personal history of transient ischemic attack (TIA), and cerebral infarction without residual deficits; Z79.02 Long term (current) use of antithrombotics/antiplatelets; Z95.5 Presence of coronary angioplasty implant and graft; Z87.891 Personal history of nicotine dependence; Z82.49 Family history of ischemic heart disease and other diseases of the circulatory system
CPT/HCPCS: 93005; 99285; 96360; 96361; 36415 ×3; 82553; 82962 ×3; 80307 ×2; 82550; 83690; 83735; 84443; 85025 ×2; 85610; 85730; 80048 ×2; 80053; 81001; 84484 ×2; 83880; 71045 ×2; 70450; 70496; 70498; 93010; G0378 ×4; A9270 ×28; J1644 ×2; J1940 ×2; J7030